=== PATIENT | male | born 1950 | race Caucasian/White ===

== ENCOUNTER 2016-10-09 05:28 | Day surgery (SDC) | payer OTHER ==
[~2016-10-09] VITALS: Ht 175.3 cm; Wt 52.6 kg
--- NOTE | ~2016-10-09 | EKG ---
[address] [address] ELECTROCARDIOGRAM REPORT Name: HARISH KIDD Room #: 150-4 [facility]#: [id number] Admission: 10/09/16 Attend Phys: Abdirashid Lane MD Discharge: Date of : 52 Report #: [id number] THIS REPORT FOR: //name// [facility] Test Date: 2016-10-09 Test Time: 08:37:05 Pat Name: HARISH KIDD Department: Room: 150 4 Gender: M Charge Aide: NO : 1950 Requested By: Abdirashid Lane Order Number: [id number] MD: Measurements Intervals [place] Rate: 63 P: 13 MN: 162 QRS: 17 QRSD: 82 T: 47 QT: 430 QTc: 441 Interpretive Statements Sinus rhythm No previous ECG available for comparison [email or web address] By: 0837 0837 Yunior Mojica MD /EPI
--- NOTE | ~2016-10-09 | EKG ---
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
--- NOTE | ~2016-10-09 | S ---
[facility] [place] [address] SURGICAL PATH RPT PROCEDURE Name: HARSIH KIDD Room #: DEP [facility]..#: [id number] Admission: 10/09/16 Date of : 52 Discharge: 10/09/16 Report #: [id number] Path Case #: [id number] PATHOLOGY REPORT COLLECTION DATE: 10/09/2016 RECEIVED DATE: 10/09/2016 SUBMITTING PHYS: Dr. Abdirashid Lane OTHER PHYS: Dr. Juan Baltazar SPECIMEN(S) RECEIVED: A.Left true vocal cord * * * * * * * * * * * * FINAL DIAGNOSIS: Lesion, left true vocal cord, biopsy: - Compatible with a vocal cord polyp. - Negative for dysplasia or malignancy. PATHOLOGIST: Aline Major M.D. REPORT ELECTRONICALLY SIGNED BY: Aline Major M.D. DATE/TIME: 10/12/2016 21:21 * * * * * * * * * * * * GROSS PATHOLOGY: Received in formalin labeled "Harish Kidd, left true vocal cord," are 3 segments of light mckeon soft tissue measuring 0.8 x 0.3 x 0.2 cm in aggregate dimensions and ranging from 0.1 to 0.5 cm in maximum dimension. The specimen is submitted entirely in cassette A1. (KAH; 10/10/2016) CLINICAL HISTORY: Lesion vocal cord INITIAL CPT CODE(S): A; 84523 Professional services performed by [facility] at [facility] [address] , [place] [address] Technical services performed by [facility] at [address] [place] [address], [facility], [place] [address]. [facility] [address] [place] [address] SURGICAL PATH RPT PROCEDURE Name: HARISH KIDD Room #: DEP [facility] Thuan#: [id number] Admission: 10/09/16 Date of : 52 Discharge: 10/09/16 Report #: [id number] Path Case #: [id number] [address] PHONE: [phone] DIRECTOR: Karel Jackson M.D. * * * END OF REPORT * * *
--- NOTE | ~2016-10-09 | H ---
[facility] [place] [address] HISTORY AND PHYSICAL Name: HARISH KIDD Room #: 150-4 [facility].#: [id number] Admission: 10/09/16 Attend Phys: Abdirashid Lane MD Discharge: Date of : 52 Report #: [id number] THIS REPORT FOR: //name// CC: Juan Lane DATE OF SERVICE: 10/08/2016 CHIEF COMPLAINT: Left true vocal cord mass. HISTORY OF PRESENT ILLNESS: The patient is a 66-year-old gentleman. He presented to the clinic on 09/22/2016 with a prolonged/6 months longer history of fluctuating hoarse voice. He had no other symptoms associated with a voicing change. There is no preexisting history of an upper respiratory infection, postnasal discharge, or reflux disease. He had a long history of tobacco abuse. He noted the voice does not worsen with effort, but it does require more effort to project than in the past. 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 There was no contact lesions on the adjacent part of the right vocal cord. Given these findings and with the history of his tobacco abuse, I recommended obtaining direct laryngoscopy with microscope with biopsy for an accurate diagnosis. I have explained the risks and benefits inherent to this procedure as well as the risks of not proceeding forward with the procedure. He is in a full agreement to proceed. ALLERGIES TO MEDICATION: None. MEDICATIONS ON ADMISSION: Chantix 1 by mouth twice a day as needed, doxycycline 100 mg twice a day, lisinopril 10 mg once a day, triamcinolone acetonide topical cream as needed. PAST MEDICAL AND SURGICAL HISTORY: Previous myringotomies, adenotonsillectomy, extraction of wisdom teeth, history of essential hypertension and history of hepatitis C positive at a blood test. FAMILY HISTORY: Noncontributory. REVIEW OF SYSTEMS: Presently negative for any GI, or cardiovascular or pulmonary issues aside from tobacco abuse. PHYSICAL EXAMINATION: VITAL SIGNS: 5 feet 9 inches, weight 130 pounds, blood pressure 140/90. GENERAL: He appears his stated age. [facility] [address] [place] [address] HISTORY AND PHYSICAL Name: HARISH KIDD Room #: 150-4 [facility].#: [id number] Admission: 10/09/16 Attend Phys: Abdirashid Lane MD Discharge: Date of : 52 Report #: [id number] HEENT: No abnormalities were noted within the nares, oral cavity, oropharynx aside from tonsils. The laryngeal examination was as detailed above in the HPI. NECK: Without any palpable lymphadenopathy. CHEST: Clear. CARDIOVASCULAR: Regular rhythm. 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 PLAN: Will be for direct microlaryngoscopy with biopsy. <ELECTRONICALLY SIGNED> By: Abdirashid Lane MD 10/09/[address]22 [address] MD /nt
--- NOTE | ~2016-10-09 | O ---
[facility] [place] [address] OPERATIVE REPORT Name: HARISH KIDD Room #: 150-4 [facility]#: [id number] Admission: 10/09/16 Attend Phys: Abdirashid Lane MD Discharge: Date of : 52 Report #: [id number] THIS REPORT FOR: //name// CC: Juan Lane DATE OF SERVICE: 10/09/2016 PREOPERATIVE DIAGNOSIS: Left true vocal cord mass. POSTOPERATIVE DIAGNOSIS: Path pending. PROCEDURE: Microdirect laryngoscopy with biopsy of left mid true vocal cord lesion. SURGEON: Abdirashid Lane M.D. ANESTHESIA: General oral endotracheal. INDICATIONS: See H and P. FINDINGS: There was a small, perhaps 1- to 2-mm mass located in the medial surface of the anterior to middle third junction on the left true vocal cord. This was firm in nature. There were no signs of leukoplakia on the left true vocal cord as seen in the office. The corresponding right vocal cord appeared unremarkable. TECHNIQUE: After obtaining consent, he was brought to the operating suite and appropriate timeout was performed. General oral endotracheal anesthesia was obtained. Bed was turned 90 degrees. He was placed in a modified Deborah position with mild neck hyperextension. A mouth guard was used to protect the upper dentition. The Dedo laryngoscope was introduced in the oral cavity and advanced to the oropharynx and hypopharynx. Inspection of the postcricoid area of the left and right piriform sinus mucosa and lingual and laryngeal surface of the epiglottis were unremarkable. The larynx was intubated and suspended from the [place] stand with the suspension device. The microscope was brought in to the field. Pre-biopsy pictures were taken of the larynx. Using a small left turned cup forceps, the mass was grasped using curved scissors and mucosal incision was made on the superior surface/dorsum of the vocal cord and gently dissected away from the vocal ligament. Specimen was taken in one piece. I then attempted to unfurl the mucosal edges to lay flat. Hemostasis was obtained with the use of 0.5 x 0.5 cottonoid with adrenaline. After adequate hemostasis was ensured, there was no sign of any vocal cord edema. I then checked the entire medial surface of each vocal cord as well as the dorsal surface without any other abnormalities noted. At that point, the case was terminated. He was allowed to awaken from anesthesia and went to recovery room in stable condition. [address] [address] OPERATIVE REPORT Name: HARISH KIDD Room #: 150-4 [facility] M.R.#: [id number] Admission: 10/09/16 Attend Phys: Abdirashid Lane MD Discharge: Date of : 52 Report #: [id number] ESTIMATED BLOOD LOSS: Scant. By: [address] MD /nt
[~2016-10-09 05:28] MED LIST: FISH OIL 1,001000 M2 PO; LISINOPRIL10 MG PO
[2016-10-09 08:58] VITALS: BP 131/85
[2016-10-09 12:26] VITALS: BP 131/85
== END 2016-10-09 13:30 | disposition home or self-care (01) ==
LOC: OR 05:28 → TBA 05:28 → OR 11:42
DX: J38.1 Polyp of vocal cord and larynx (principal); I10 Essential (primary) hypertension; B19.20 Unspecified viral hepatitis C without hepatic coma; Z98.890 Other specified postprocedural states; F17.200 Nicotine dependence, unspecified, uncomplicated
CPT/HCPCS: 50010; 50101; 62110; 62900; 70005